=== PATIENT | male | born 1975 | race Caucasian/White ===

== ENCOUNTER 2017-08-23 17:59 | Emergency (ER) | END 2017-08-23 19:18 | disposition home or self-care (01) ==

== ENCOUNTER 2018-04-17 11:05 | Emergency (ER) | END 2018-04-17 12:30 | disposition home or self-care (01) ==

== ENCOUNTER 2018-05-01 14:11 | Emergency (ER) | END 2018-05-01 16:04 | disposition home or self-care (01) ==

== ENCOUNTER 2018-07-04 17:05 | Emergency (ER) | payer OTHER ==
[~2018-07-04] VITALS: Ht 172.7 cm; Wt 104.3 kg
[~2018-07-04 17:05] MED LIST: AMOX1TAB10 PO; AMOX500C2 PO; CROM13SP5 NS; FLUT9.9S NASAL; HC30CR25 TOP; LORA10TA3 PO; MED4DP PO; PRED20TA PO
[2018-07-04 17:09] VITALS: Ht 172.7 cm; Wt 104.3 kg
[2018-07-04] MEDS ORDERED: PRED20TA PO (18:06)
[2018-07-04] MEDS ORDERED: FLUT9.9S NASAL (18:06)
--- NOTE | 2018-07-04 19:33 | ERD ---
ER Documentation Chief Complaint Chief Complaint NASAL CONGESTION, DRY COUGH [id number] WORSE TODAY WITH JEFF HPI This patient is a 42-year-old male presenting to the emergency department with c omplaints of sinus congestion for the past 4 weeks. He states he is taking amoxicillin for the past 10 days and today is his last day. Symptoms are intermittent and moderate in severity. He denies any cough, fevers, chills, or other symptoms at this time. ROS All systems reviewed and are negative except as per history of present illness. Medications Home Meds Active Scripts Fluticasone Propionate (Flonase Allergy Relief) 9.9 Ml [place].susp, 1 SPRAY NASAL BID, #1 BOTTLE TO EACH NOSTRIL Prov:RIA FUNG PA-C 07/04/18 Prednisone* (Prednisone*) 20 Mg Tab, 40 MG PO DAILY for 4 Days, TAB Prov:RIA FUNG PA-C 07/04/18 Loratadine* (Loratadine*) 10 Mg Tablet, 10 MG PO DAILY, #30 TAB Prov:BREE FRANKLIN MD 05/01/18 Prednisone* (Prednisone*) 20 Mg Tab, 40 MG PO DAILY for 4 Days, TAB Prov:BREE FRANKLIN MD 05/01/18 Cromolyn Sodium (Nasal Allergy [place]) 13 Ml [place].pump, 13 ML NS DAILY for 10 Days, #1 Prov:BREE FRANKLIN MD 05/01/18 Amoxicillin* (Amoxicillin*) 500 Mg Cap, 500 MG PO TID for 10 Days, CAP Prov:BREE FRANKLIN MD 05/01/18 Hydrocortisone* Topical (Hydrocortisone* Topical) 2.5%-28.3 Gm Cream..g., 1 APPLIC TOP BID for alopecia for 10 Days, #1 TUB Prov:YONI GONZALEZ DO 04/17/18 Methylprednisolone* (Medrol* DOSE PACK) 4 Mg/Dose-Pack Tab.ds.pk, 4 MG PO . DIRECTED, #1 PACKET Prov:RIA FUNG PA-C 08/23/17 Fluticasone Propionate (Flonase Allergy Relief) 9.9 Ml [place].susp, 1 SPRAY NASAL BID, #1 BOTTLE TO EACH NOSTRIL Prov:RIA FUNG PA-C 08/23/17 Amoxicillin/Potassium Clav (Amox-Clav 875-125 mg Tablet) 875-125 mg Tab, 1 TAB PO BID for 10 Days, #20 TAB Prov:RIA FUNG PA-C 08/23/17 Allergies Allergies: Coded Allergies: No Known Allergy (Unverified , 05/01/18) PMhx/Soc Medical and Surgical Hx: pt denies Medical Hx, pt denies Surgical Hx Hx Alcohol Use: No Hx Substance Use: No Hx Tobacco Use: No FmHx Family History: No diabetes Physical Exam Vitals Vital Signs Date Temp Pulse Resp B/P (MAP) Pulse Ox O2 O2 Flow FiO2 Time Delivery Rate 07/04/18 97.8 68 20 149/95 98 17:09 (113) Physical Exam Const: No acute distress Head: Atraumatic Eyes: Normal Conjunctiva ENT: Normal External Ears, Nose and Mouth. Tenderness to palpation of the maxillary sinuses bilaterally. Neck: Full range of motion. No meningismus. Resp: Clear to auscultation bilaterally Cardio: Regular rate and rhythm, no murmurs Skin: No petechiae or rashes Ext: No cyanosis, or edema Neur: Awake and alert Psych: Normal Mood and Affect Procedures/MDM Patient is a 42-year-old male presenting to the emergency department with signs and symptoms most consistent with acute sinusitis. No evidence to suggest meningitis, sepsis, serious bacterial infection, or other emergencies. The patient is stable and appropriate for further treatment as an outpatient with prescriptions. The patient agreed with the diagnosis, plan, need for follow-up, return precautions. All questions and concerns were addressed prior to discharge. Patient's blood pressure was elevated (>120/80) but appears stable without evidence of hypertension emergency or urgency. The patient is to follow-up and pursue outpatient monitoring and therapy with their primary care physician within 1 week and return immediately if they have any new, worsening, or concerning symptoms. Disclaimer: Inadvertent spelling and grammatical errors are likely due to EHR/dictation software use and do not reflect on the overall quality of patient care. Also, please note that the electronic time recorded on this note does not necessarily reflect the actual time of the patient encounter. Departure Diagnosis: Primary Impression: Acute sinusitis Sinusitis location: maxillary Recurrence: recurrent Qualified Codes: J01.01 - Acute recurrent maxillary sinusitis Condition: Fair Patient Instructions: Sinusitis, No Abx Referrals: [facility] Additional Instructions: Call your primary care doctor TOMORROW for an appointment during the next 1-2 days.See the doctor sooner or return here if your condition worsens before your appointment time. RIA FUNG PA-C Jul 04, 2018 19:33
== END 2018-07-04 18:15 | disposition home or self-care (01) ==
LOC: FTE 17:05
DX: J01.01 Acute recurrent maxillary sinusitis (principal)
CPT/HCPCS: 99283